=== PATIENT | male | born 1945 | race Caucasian/White ===

== ENCOUNTER → 2016-09-15 | Outpatient (CLI) | payer MEDICARE, OTHER | END | disposition home or self-care (01) | LOC: CFH 13:22 | PROVIDERS: ATTEND Internal Medicine Pulmonary Disease | DX: J84.9 Interstitial pulmonary disease, unspecified (principal); J47.9 Bronchiectasis, uncomplicated; K46.9 Unspecified abdominal hernia without obstruction or gangrene | CPT/HCPCS: 71250 ==

== ENCOUNTER 2017-01-16 13:34 | Inpatient (IN) | payer MEDICARE, OTHER ==
[~2017-01-16] VITALS: Ht 177.8 cm; Wt 110.0 kg
[2017-01-16] MEDS ORDERED: CEFTRIAXONE PMX 1GM/50ML 50 ML ONE (14:22)
[2017-01-16] MEDS ORDERED: METRONIDAZOLE PMX 500MG/100ML 100 ML ONE (14:22)
[2017-01-16 14:23] LABS: HEMATOCRIT 41.5 % (39.2-51.8); HEMOGLOBIN 13.9 g/dL (13.7-18.0); WHITE BLOOD COUNT 12.9 x10^3/uL (3.4-10)
[2017-01-16] MEDS ORDERED: SODIUM CHLORIDE 0.9% 1,000ML IVBOLUS ONE (14:30)
[2017-01-16] MEDS ORDERED: HYDROmorphone 1 MG/ML, 1ML IVPush PRN (14:30)
[2017-01-16] MEDS ORDERED: ONDANSETRON 2MG/ML, 2ML IVPush ONE (14:30)
[2017-01-16] MEDS ORDERED: METRONIDAZOLE PMX 500MG/100ML 100 ML IV ONE (14:30)
[2017-01-16] MEDS ORDERED: CEFTRIAXONE PMX 1GM/50ML 50 ML IV ONE (14:30)
[2017-01-16] MEDS ORDERED: SODIUM CHLORIDE FLUSH 10ML SYR IVF ONE (14:30)
[2017-01-16 14:35] LABS: ASPARTATE AMINO TRANSFERASE 8 U/L (15-37); BLOOD UREA NITROGEN 10 mg/dL (7-18)
[2017-01-16] MEDS: SODIUM CHLORIDE 0.9% 1,000 ML IV SCH (15:39)
[2017-01-16] MEDS ORDERED: LEVO25TA2 PO (15:42)
[2017-01-16] MEDS ORDERED: PRAV10TA2 PO (15:42)
[2017-01-16] MEDS ORDERED: PRAV40TA2 PO (16:04)
[2017-01-16] MEDS ORDERED: LEVO75TA PO (16:04)
[2017-01-16] MEDS ORDERED: DULARA INH (16:04)
[2017-01-16] MEDS ORDERED: morphine SULFATE 10 MG/ML, 1ML IVPush PRN (16:30)
[2017-01-16] MEDS ORDERED: GUAIFENESIN/DM 200-20MG, 10ML UDC PO PRN (16:30)
[2017-01-16] MEDS ORDERED: ACETAMINOPHEN 325 MG TABLET PO PRN (16:30)
[2017-01-16] MEDS ORDERED: LABETALOL 5MG/ML, 20ML IVPush PRN (16:30)
[2017-01-16] MEDS: METRONIDAZOLE PMX 500MG/100ML 100 ML IV SCH (16:38)
[2017-01-16 19:01] VITALS: BP 119/77
[2017-01-16] MEDS: CEFTRIAXONE PMX 2GM/50ML 50 ML IV SCH (19:49)
[2017-01-16 20:00] VITALS: BP 119/77
[2017-01-16] MEDS: PRAVASTATIN 40 MG TABLET PO SCH (21:12)
[2017-01-17] MEDS: SODIUM CHLORIDE 0.9% 1,000 ML IV SCH ×3 (00:05→20:21)
[2017-01-17] MEDS: METRONIDAZOLE PMX 500MG/100ML 100 ML IV SCH ×3 (00:05→16:17)
[2017-01-17 01:30] VITALS: BP 104/65
[2017-01-17 05:56] LABS: HEMATOCRIT 35.9 % (39.2-51.8); HEMOGLOBIN 12.1 g/dL (13.7-18.0); WHITE BLOOD COUNT 8.8 x10^3/uL (3.4-10)
[2017-01-17 05:59] LABS: BLOOD UREA NITROGEN 9 mg/dL (7-18)
[2017-01-17] MEDS: LEVOTHYROXINE 75 MCG TABLET PO SCH ×2 (06:00→08:35)
[2017-01-17 06:10] LABS: ASPARTATE AMINO TRANSFERASE 8 U/L (15-37)
[2017-01-17 07:13] VITALS: BP 111/68
[2017-01-17] MEDS: HEPARIN 5,000 UNITS/ML, 1ML SQ SCH ×2 (10:34→18:38)
[2017-01-17 12:58] VITALS: BP 110/72
[2017-01-17 19:12] VITALS: BP 124/70
[2017-01-17] MEDS: CEFTRIAXONE PMX 2GM/50ML 50 ML IV SCH (20:21)
[2017-01-17] MEDS: PRAVASTATIN 40 MG TABLET PO SCH (20:22)
[2017-01-18] MEDS: METRONIDAZOLE PMX 500MG/100ML 100 ML IV SCH ×3 (00:47→16:00)
[2017-01-18] MEDS: HEPARIN 5,000 UNITS/ML, 1ML SQ SCH ×3 (00:48→17:26)
[2017-01-18 01:19] VITALS: BP 118/62
[2017-01-18] MEDS: SODIUM CHLORIDE 0.9% 1,000 ML IV SCH (05:06)
[2017-01-18] MEDS: LEVOTHYROXINE 75 MCG TABLET PO SCH (05:15)
[2017-01-18 05:48] LABS: HEMATOCRIT 36.2 % (39.2-51.8); HEMOGLOBIN 12.2 g/dL (13.7-18.0); WHITE BLOOD COUNT 6.5 x10^3/uL (3.4-10)
[2017-01-18 05:55] LABS: BLOOD UREA NITROGEN 11 mg/dL (7-18)
[2017-01-18 07:50] VITALS: BP 126/70
[2017-01-18 14:18] VITALS: BP 146/88
[2017-01-18] MEDS: CEFTRIAXONE PMX 2GM/50ML 50 ML IV SCH (20:05)
[2017-01-18 20:15] VITALS: BP 123/68
[2017-01-18] MEDS: PRAVASTATIN 40 MG TABLET PO SCH (20:27)
[2017-01-19] MEDS: HEPARIN 5,000 UNITS/ML, 1ML SQ SCH ×3 (00:42→16:45)
[2017-01-19] MEDS: METRONIDAZOLE PMX 500MG/100ML 100 ML IV SCH ×3 (00:42→16:45)
[2017-01-19 01:54] VITALS: BP 111/75
[2017-01-19 06:12] LABS: BLOOD UREA NITROGEN 8 mg/dL (7-18)
[2017-01-19] MEDS: LEVOTHYROXINE 75 MCG TABLET PO SCH (06:42)
[2017-01-19 07:44] VITALS: BP 115/73
[2017-01-19 13:56] VITALS: BP 127/83
[2017-01-19] MEDS: CEFTRIAXONE PMX 2GM/50ML 50 ML IV SCH (20:00)
[2017-01-19] MEDS: PRAVASTATIN 40 MG TABLET PO SCH (20:00)
[2017-01-19 21:09] VITALS: BP 112/68
[2017-01-20] MEDS: HEPARIN 5,000 UNITS/ML, 1ML SQ SCH ×2 (01:03→08:20)
[2017-01-20] MEDS: METRONIDAZOLE PMX 500MG/100ML 100 ML IV SCH ×2 (01:07→08:13)
[2017-01-20 01:48] VITALS: BP 114/78
[2017-01-20 04:59] LABS: HEMOGLOBIN 12.1 g/dL (13.7-18.0); WHITE BLOOD COUNT 6.1 x10^3/uL (3.4-10)
[2017-01-20 05:10] LABS: BLOOD UREA NITROGEN 8 mg/dL (7-18)
[2017-01-20] MEDS: LEVOTHYROXINE 75 MCG TABLET PO SCH (06:39)
[2017-01-20 07:38] VITALS: BP 114/74
[2017-01-20] MEDS ORDERED: CEFD300C37 PO (10:43)
[2017-01-20] MEDS ORDERED: METR500T PO (10:43)
[2017-01-20 11:25] VITALS: BP 116/65
== END 2017-01-20 12:45 | disposition home or self-care (01) | DRG 391 ==
LOC: ED 14:43 → EDIP 15:13 → 4NOR 16:53 → DCLOUNGE 01-20 12:10
PROVIDERS: ADMIT Hospitalist; ATTEND Family Medicine
PROC: 5A09357 Assistance with Respiratory Ventilation, Less than 24 Consecutive Hours, Continuous Positive Airway Pressure (ICD-10-PCS; principal; 2017-01-17)
DX: K57.20 Diverticulitis of large intestine with perforation and abscess without bleeding (principal); E43 Unspecified severe protein-calorie malnutrition; R65.10 Systemic inflammatory response syndrome (SIRS) of non-infectious origin without acute organ dysfunction; J44.9 Chronic obstructive pulmonary disease, unspecified; E03.9 Hypothyroidism, unspecified; E78.5 Hyperlipidemia, unspecified; J30.2 Other seasonal allergic rhinitis; G47.30 Sleep apnea, unspecified; E66.9 Obesity, unspecified; E78.00 Pure hypercholesterolemia, unspecified; Z90.49 Acquired absence of other specified parts of digestive tract; Z87.891 Personal history of nicotine dependence; Z79.899 Other long term (current) drug therapy; Z68.34 Body mass index [BMI] 34.0-34.9, adult; Z82.49 Family history of ischemic heart disease and other diseases of the circulatory system
CPT/HCPCS: 36415; 80048; 80053; 81003; 82040; 83605; 83690; 83735; 84443; 85025; 85610; 87040; 96365; 96375; J0696; J1644; J7030

== ENCOUNTER → 2017-01-16 | Outpatient (CLI) | payer MEDICARE, OTHER ==
[~2017-01-16] MED LIST: CEFD300C37 PO; DULARA INH; LEVO25TA2 PO; LEVO75TA PO; METR500T PO; OMNIPAQUE 350 MG/ML, 100ML BOTTLE ONE; PRAV10TA2 PO; PRAV40TA2 PO
== END | disposition home or self-care (01) ==
LOC: CFH 11:11
PROVIDERS: ATTEND Internal Medicine Gastroenterology
DX: K44.9 Diaphragmatic hernia without obstruction or gangrene (principal); N40.0 Benign prostatic hyperplasia without lower urinary tract symptoms; M48.54XA Collapsed vertebra, not elsewhere classified, thoracic region, initial encounter for fracture; M48.56XA Collapsed vertebra, not elsewhere classified, lumbar region, initial encounter for fracture; K57.80 Diverticulitis of intestine, part unspecified, with perforation and abscess without bleeding; N28.1 Cyst of kidney, acquired; I70.0 Atherosclerosis of aorta; M85.80 Other specified disorders of bone density and structure, unspecified site; M41.86 Other forms of scoliosis, lumbar region; K76.0 Fatty (change of) liver, not elsewhere classified; K57.30 Diverticulosis of large intestine without perforation or abscess without bleeding; Z90.49 Acquired absence of other specified parts of digestive tract
CPT/HCPCS: 74177; Q9967

== ENCOUNTER → 2018-10-02 | Outpatient (CLI) | payer MEDICARE, OTHER ==
[~2018-10-02] MED LIST changes: -OMNIPAQUE 350 MG/ML, 100ML BOTTLE ONE
== END | disposition home or self-care (01) ==
LOC: CFH 10:50
PROVIDERS: ATTEND Registered Nurse
DX: J84.9 Interstitial pulmonary disease, unspecified (principal); K44.9 Diaphragmatic hernia without obstruction or gangrene; J45.909 Unspecified asthma, uncomplicated; J47.9 Bronchiectasis, uncomplicated; M84.48XA Pathological fracture, other site, initial encounter for fracture
CPT/HCPCS: 71250